=== PATIENT | female | born 1985 | race Caucasian/White ===

== ENCOUNTER 2018-02-24 00:55 | Emergency (ER) | payer OTHER ==
[2018-02-24] MEDS: ALBUTEROL 0.083% (NEB) 2.5 MG/3 ML AMP NEB (01:53)
[2018-02-24] MEDS: IPRATROPIUM (NEB) 0.5 MG/2.5 ML AMP NEB (01:53)
[2018-02-24] MEDS: DEXAMETHASONE 10 MG/ML 1 ML INJ IM (02:04)
== END 2018-02-24 04:26 | disposition home or self-care (01) ==
LOC: FTE 00:55
DX: J45.31 Mild persistent asthma with (acute) exacerbation (principal); E11.9 Type 2 diabetes mellitus without complications; Z79.84 Long term (current) use of oral hypoglycemic drugs
CPT/HCPCS: 94664; 96372; 99284-25